=== PATIENT | female | born 1940 | race Caucasian/White ===

== ENCOUNTER 2024-04-28 04:03 | Emergency (ER) | payer MEDICARE, OTHER ==
[2024-04-28 04:09] VITALS: BP 126/75; PULSE 67; RESP 17; TEMP 97.7; BMI 25.7
[2024-04-28] MEDS ORDERED: ACETAMINOPHEN INJECTION 100 ML IVPB ONE (04:23)
[2024-04-28] MEDS ORDERED: ONDANSETRON 4 MG/2 ML VIAL ONE (04:23)
[2024-04-28] MEDS ORDERED: FAMOTIDINE 20 MG/50 ML IVPB 20 MG/50 ML MG IVPB ONE (04:23)
[2024-04-28] MEDS: ACETAMINOPHEN 1000 MG/100 ML BAG IVPB ONE (04:40)
[2024-04-28] MEDS: FAMOTIDINE 20 MG/50 ML IVPB 20 MG/50 ML MG IVPB ONE (04:40)
[2024-04-28] MEDS: SODIUM CHLORIDE 1,000 ML IV STA (04:40)
[2024-04-28] MEDS: ONDANSETRON 4 MG/2 ML VIAL IVPUSH ONE (04:40)
[2024-04-28 05:47] LABS: BASO % 0.5 % (0-2.0); EOS % 0.2 % (0-4.5); HEMATOCRIT 41.7 % (32.4-45.2); HEMOGLOBIN 14.1 GM/dL (10.7-15.3); LYMPH % 13.1 % (8-40); MCH 31.4 pg (25.7-33.7); MCHC 33.8 g/dl (32.0-36.0); MEAN CELL VOLUME 92.8 fl (80-96); MEAN PLT VOLUME 9.3 fl (7.5-11.1); NEUT % 81.2 % (42.8-82.8); PLATELET COUNT 185 10^3/uL (134-434); RBC 4.49 M/mm3 (3.60-5.2); RDW 13.6 % (11.6-15.6); WHITE BLOOD COUNT 7.3 K/mm3 (4.0-10.0)
[2024-04-28 06:16] LABS: ALBUMIN 3.8 g/dl (3.4-5.0); CALCIUM 9.2 mg/dL (8.5-10.1); POTASSIUM 4.3 mmol/L (3.5-5.1)
[2024-04-28 06:20] LABS: CREATININE 0.7 mg/dL (0.55-1.3)
[2024-04-28 06:22] LABS: BILIRUBIN,TOTAL 0.5 mg/dL (0.2-1); TOT PROT 7.2 g/dl (6.4-8.2)
== END 2024-04-28 06:53 | disposition home or self-care (01) ==
LOC: FER 04:03
PROC: 3E033GC Introduction of Other Therapeutic Substance into Peripheral Vein, Percutaneous Approach (ICD-10-PCS; principal; 2024-04-28)
PROC: 3E033NZ Introduction of Analgesics, Hypnotics, Sedatives into Peripheral Vein, Percutaneous Approach (ICD-10-PCS; 2024-04-28)
PROC: 3E033GC Introduction of Other Therapeutic Substance into Peripheral Vein, Percutaneous Approach (ICD-10-PCS; 2024-04-28)
DX: K52.9 Noninfective gastroenteritis and colitis, unspecified (principal); R11.2 Nausea with vomiting, unspecified; R10.33 Periumbilical pain
CPT/HCPCS: 36415; 80053; 83690; 85025; 96365; 96375; 99284-25; J0131

== ENCOUNTER 2024-04-28 08:27 | Observation (INO) | payer MEDICARE, OTHER ==
[2024-04-28 08:47] VITALS: BMI 25.9
[2024-04-28] MEDS ORDERED: ONDANSETRON 4 MG/2 ML VIAL ONE (08:55)
[2024-04-28] MEDS: ONDANSETRON 4 MG/2 ML VIAL IVPUSH ONE (09:39)
[2024-04-28] MEDS: SODIUM CHLORIDE 0.9% 1000 ML INFUS.BAG IV ONE ×2 (09:39→12:53)
[2024-04-28 09:48] LABS: HEMATOCRIT 45.6 % (32.4-45.2); HEMOGLOBIN 14.7 G/dL (10.7-15.3); MCH 30.5 pg (25.7-33.7); MCHC 32.3 g/dl (32.0-36.0); MEAN CELL VOLUME 94.5 fl (80-96); MEAN PLT VOLUME 9.4 fl (7.5-11.1); PLATELET COUNT 163.8 10^3/uL (134-434); RBC 4.83 10^6/uL (3.60-5.2); RDW 14.5 % (11.6-15.6); WHITE BLOOD COUNT 8.8 10^3/uL (4.0-10.8)
[2024-04-28] MEDS ORDERED: FAMOTIDINE 20 MG/50 ML IVPB 20 MG/50 ML MG IVPB ONE (10:05)
[2024-04-28] MEDS ORDERED: ACETAMINOPHEN INJECTION 100 ML IVPB ONE (10:05)
[2024-04-28] MEDS ORDERED: METOCLOPRAMIDE HCL INJECTION 10 MG/2 ML VIAL ONE (10:05)
[2024-04-28 10:28] LABS: ALBUMIN 4.1 g/dl (3.4-5.0); BILIRUBIN,TOTAL 0.5 mg/dl (0.2-1); CALCIUM 9.2 mg/dl (8.5-10.1); CREATININE 0.6 mg/dl (0.6-1.3); POTASSIUM 4.8 mmol/L (3.5-5.1)
[2024-04-28] MEDS: ACETAMINOPHEN 1000 MG/100 ML BAG IVPB ONE (10:30)
[2024-04-28 10:43] LABS: PLATELET ESTIMATE ADEQUATE
[2024-04-28] MEDS: FAMOTIDINE 20 MG/50 ML IVPB 20 MG/50 ML MG IVPB ONE (11:09)
[2024-04-28] MEDS: METOCLOPRAMIDE HCL INJECTION 10 MG/2 ML VIAL IVPB ONE (11:19)
[2024-04-28] MEDS ORDERED: ONDANSETRON 4 MG/2 ML VIAL IVPUSH PRN (13:53)
[2024-04-28] MEDS: DEXTROSE 5%-0.45% SALINE 1,000 ML IV SCH (14:55)
[2024-04-28] MEDS: KETOROLAC TROMETHAMINE 30 MG/1 ML VIAL IVPUSH PRN (14:55)
[2024-04-28] MEDS ORDERED: ACETAMINOPHEN 1000 MG/100 ML BAG IVPB PRN (16:00)
[2024-04-29] MEDS: IOHEXOL (OMNIPAQUE IV) 350 MG/ML - 100 ML BOTTLE PO ONE (11:24)
[2024-04-29] MEDS ORDERED: ACETAMINOPHEN 1000 MG/100 ML BAG IVPB PRN (12:41)
[2024-04-29] MEDS: LABETALOL HCL 5 MG/1 ML (100MG/20 ML VIAL) IVPUSH PRN (14:07)
[2024-04-29] MEDS: PANTOPRAZOLE SODIUM 40 MG VIAL IVPUSH SCH (14:17)
[2024-04-30] MEDS ORDERED: ACETAMINOPHEN 325 MG TABLET (FP) PO PRN (07:22)
[2024-04-30] MEDS ORDERED: IBUPROFEN 600 MG TABLET (FP) PO PRN (07:22)
[2024-04-30 08:31] LABS: HEMATOCRIT 40.8 % (32.4-45.2); HEMOGLOBIN 12.8 G/dL (10.7-15.3); MCH 29.8 pg (25.7-33.7); MCHC 31.5 g/dl (32.0-36.0); MEAN CELL VOLUME 94.6 fl (80-96); MEAN PLT VOLUME 9.7 fl (7.5-11.1); PLATELET COUNT 154.3 10^3/uL (134-434); RBC 4.31 10^6/uL (3.60-5.2); RDW 13.9 % (11.6-15.6); WHITE BLOOD COUNT 3.9 10^3/uL (4.0-10.8)
[2024-04-30 09:06] LABS: CALCIUM 8.7 mg/dl (8.5-10.1); CREATININE 0.6 mg/dl (0.6-1.3); PHOSPHOROUS 2.8 (2.5-4.9); POTASSIUM 3.9 mmol/L (3.5-5.1)
[2024-04-30] MEDS: amLODIPine BESYLATE 5 MG TABLET (FP) PO SCH (09:33)
[2024-04-30] MEDS: LOSARTAN POTASSIUM 50 MG TABLET PO SCH (09:34)
[2024-04-30] MEDS: DEXTROSE 5%-0.45% SALINE 1,000 ML IV SCH (09:34)
[2024-04-30] MEDS: FAMOTIDINE 20 MG TABLET PO SCH (09:34)
[2024-04-30] MEDS ORDERED: SIMETHICONE 80 MG TAB.CHEW (FP) PO PRN (13:47)
[2024-05-01 04:36] VITALS: RESP 18
[2024-05-01] MEDS: amLODIPine BESYLATE 5 MG TABLET (FP) PO SCH (07:54)
[2024-05-01 08:26] LABS: HEMATOCRIT 42.6 % (32.4-45.2); HEMOGLOBIN 13.3 G/dL (10.7-15.3); MCH 29.5 pg (25.7-33.7); MCHC 31.3 g/dl (32.0-36.0); MEAN CELL VOLUME 94.2 fl (80-96); MEAN PLT VOLUME 9.5 fl (7.5-11.1); PLATELET COUNT 153.7 10^3/uL (134-434); RBC 4.52 10^6/uL (3.60-5.2); RDW 14.5 % (11.6-15.6); WHITE BLOOD COUNT 4.2 10^3/uL (4.0-10.8)
[2024-05-01 08:28] LABS: CREATININE 0.9 mg/dl (0.6-1.3); POTASSIUM 3.9 mmol/L (3.5-5.1)
[2024-05-01 08:29] LABS: CALCIUM 9.4 mg/dl (8.5-10.1); PHOSPHOROUS 3.7 (2.5-4.9)
[2024-05-01] MEDS: ENOXAPARIN NA (PORCINE) 40 MG/0.4 ML DISP.SYRIN SQ SCH (09:35)
[2024-05-01 12:13] VITALS: BP 158/55; PULSE 48; TEMP 98.1
== END 2024-05-01 14:57 | disposition home or self-care (01) ==
LOC: FER 08:27 → INTOOBSV 13:14 → FM/S 13:14
PROVIDERS: ADMIT Internal Medicine; ATTEND Internal Medicine
PROC: 3E033NZ Introduction of Analgesics, Hypnotics, Sedatives into Peripheral Vein, Percutaneous Approach (ICD-10-PCS; principal; 2024-04-28)
PROC: 3E0337Z Introduction of Electrolytic and Water Balance Substance into Peripheral Vein, Percutaneous Approach (ICD-10-PCS; 2024-04-28)
PROC: 3E033GC Introduction of Other Therapeutic Substance into Peripheral Vein, Percutaneous Approach (ICD-10-PCS; 2024-04-28)
PROC: 3E0333Z Introduction of Anti-inflammatory into Peripheral Vein, Percutaneous Approach (ICD-10-PCS; 2024-04-28)
DX: K56.609 Unspecified intestinal obstruction, unspecified as to partial versus complete obstruction (principal); I10 Essential (primary) hypertension; Z90.49 Acquired absence of other specified parts of digestive tract; R10.13 Epigastric pain; Z88.2 Allergy status to sulfonamides
CPT/HCPCS: 0241U-QW; 36415; 74019-TC-FY; 74177-TC; 76705-TC; 80048; 80053; 81003; 81015; 83690; 83735; 84100; 85027; 96361; 96367; 96368; 96374; 96375; 97116-GP; 97161-GP; 99285-25; G0378; J0131; Q9967